=== PATIENT | female | born 1935 | race Caucasian/White ===

== ENCOUNTER → 2021-04-12 | Outpatient (CLI) | payer MEDICARE, BC, OTHER ==
--- NOTE | 2021-04-12 16:06 | RAD ---
STUDY: US DPLX VENOUS EXTREMITY LOWER LT INDICATION: Lower extremity pain. DVT. TECHNIQUE: Color-flow and pulsed wave duplex ultrasound with compression of venous structures of the left lower extremity. COMPARISON: None FINDINGS: Duplex ultrasound with compression of the deep venous structures of the left lower extremity from the common femoral vein through the popliteal vein is negative for DVT. The posterior tibial and peroneal veins are segmentally visualized and patent where seen. Normal veno us waveforms and augmentation are noted throughout. IMPRESSION: No deep venous thrombosis throughout the left lower extremity. Electronically signed by: NIRANJAN CARNEY MD (04/12/2021 4:03 PM) [facility]
== END ==
LOC: US 15:08
PROVIDERS: ATTEND Internal Medicine
DX: M79.662 Pain in left lower leg (principal)
CPT/HCPCS: 93971

== ENCOUNTER → 2021-04-23 | Outpatient (CLI) | payer MEDICARE, BC, OTHER ==
--- NOTE | 2021-04-23 17:17 | RAD ---
US LEFT LOWER EXTREMITY ARTERIAL DUPLEX EVAL Indication: Reason: PAIN IN LT CALF / Spl. Instructions: / History: Comparison: None. Procedure: Real-time grayscale, color flow Doppler, and Doppler spectral waveform analysis of the art erial system of the lower extremity is performed. Findings: Left lower extremity: Triphasic or biphasic waveforms throughout the left lower extremity. Mildly christian vated velocity within the left common femoral artery measures 179 cm/s. Moderate atheromatous plaque most prominent distally. No occlusion. IMPRESSION: 1. Moderate atheromatous plaque. 2. Mildly elevated velocity within the left common femoral artery, may indicate 30-49 percent stenos is. Electronically signed by: Heladio Rose DO (04/23/2021 5:14 PM) [id number]
== END ==
LOC: US 13:06
PROVIDERS: ATTEND Internal Medicine
DX: I70.202 Unspecified atherosclerosis of native arteries of extremities, left leg (principal)
CPT/HCPCS: 93926

== ENCOUNTER → 2021-08-26 | Outpatient (CLI) | payer MEDICARE, BC, OTHER ==
--- NOTE | 2021-08-26 16:51 | RAD ---
XR ABDOMEN COMP ACUTE History: Reason: ABDOMINAL PAIN, UNABLE TO EAT - FEELS FULL / Spl. Instructions: / History: Technique: Upright and supine views of the abdomen Comparison: None. Findings: Hyperinflation. No consolidation or pleural effusion. No pneumothorax. No pneumoperitoneum. Mildly pr ominent air-filled loops of small bowel. Air and stool throughout the colon. Scattered air-fluid leve ls. Lower lumbar spondylosis. Impression: 1. Mildly prominent small bowel loops with scattered air-fluid levels, may represent enteritis or il eus. If persistent clinical concern, recommend follow-up. Electronically signed by: Heladio Rose DO (08/26/2021 4:49 PM) [id number]
== END ==
LOC: RAD 12:53
PROVIDERS: ATTEND Family Medicine
DX: R68.81 Early satiety (principal); J98.11 Atelectasis; M47.816 Spondylosis without myelopathy or radiculopathy, lumbar region
CPT/HCPCS: 74022

== ENCOUNTER → 2022-01-09 | Outpatient (CLI) | payer MEDICARE, BC, OTHER ==
--- NOTE | 2022-01-09 16:12 | RAD ---
INDICATION: Screening for osteopenia/osteoporosis. Postmenopausal evaluation COMPARISON: None. TECHNIQUE: Bone densitometry was performed through the lumbar spine and proximal femur. IMPRESSION: Lumbar Spine: BMD: 1.1 T-Score: -0.4 Range: Normal Proximal Femur: BMD: 0.77 T-Score: -1.5 Range: Osteopenic World [employer] Organization Criteria for Bone Density: T-Score: > -1.0: Normal Range < -1.0 to -2.5: Osteopenic Range < -2.5: Osteoporotic Range Electronically signed by: Paulie Morgan MD (01/09/2022 4:10 PM) [id number]
== END ==
LOC: DXRAD 13:01
PROVIDERS: ATTEND Family Medicine
DX: M85.88 Other specified disorders of bone density and structure, other site (principal); Z78.0 Asymptomatic menopausal state
CPT/HCPCS: 77080